=== PATIENT | female | born 1995 | race Caucasian/White ===

== ENCOUNTER 2018-02-19 18:25 | Emergency (ER) | payer BC ==
[~2018-02-19] VITALS: Ht 162.6 cm; Wt 59.0 kg
[2018-02-19 18:34] VITALS: BP_SYST 138
[2018-02-19 20:50] VITALS: BP_SYST 127
== END 2018-02-19 20:50 | disposition home or self-care (01) ==
LOC: SED 18:25
DX: J32.9 Chronic sinusitis, unspecified (principal); F17.210 Nicotine dependence, cigarettes, uncomplicated; Z88.5 Allergy status to narcotic agent; Z88.8 Allergy status to other drugs, medicaments and biological substances
CPT/HCPCS: 99283